=== PATIENT | male | born 1970 | race Two or more races ===

== ENCOUNTER 2024-11-12 13:26 | Emergency (ER) | payer SELFPAY ==
[2024-11-12 13:27] VITALS: BMI 23.7
[2024-11-12 13:48] VITALS: BP 130/89; PULSE 115; RESP 18; TEMP 36.6; O2SAT 95
--- NOTE | 2024-11-12 13:51 | EDRME_ITS ---
Rapid Medical Screening Exam [facility] Arrival date/time: 11/12/24 13:26 53-year-old male with no known medical history presents to the emergency room with a chief complaint of lumbar back pain x 3 days. Patient is having numbness to his groin area, patient is unable to stand up and take steps. I have greeted and performed a focused initial assessment of this patient. A comprehensive ED assessment and evaluation of the patient, analysis of all test results, and completion of the medical decision making process will be conducted by additional ED providers. Chief Complaint: Back Pain/Injury Time Seen by Provider: 11/12/24 13:46 Vital signs: Vital Signs Temperature 97.8 F 11/12/24 13:48 Pulse Rate 115 H 11/12/24 13:48 Respiratory Rate 18 11/12/24 13:48 Blood Pressure 130/89 H 11/12/24 13:48 Pulse Oximetry (%) 95 11/12/24 13:48 Oxygen Delivery Method Room Air 11/12/24 13:48 Vital signs reviewed by provider: Yes
[2024-11-12] MEDS: KETOROLAC INJ 60 MG/2 ML VIAL 30 MG IM (14:05)
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
[2024-11-12 14:35] LABS: Basophils % (Auto) 1 % (0-2.5); Eosinophils # (Auto) 0.1 Thou/mm3 (0.0-0.5); Eosinophils % (Auto) 1 % (0-10); Hematocrit 46.2 % (41.0-53.0); Hemoglobin 16.1 g/dL (13.5-16.0); Immature Granulocytes % (Auto) 0 % (0-0); Immature Granulocytes Auto 0.02 Thou/mm3 (0.00-0.00); Lymphocytes # (Auto) 1.3 Thou/mm3 (1.0-4.8); Lymphocytes % (Auto) 18 % (10-50); Mean Corpuscular HGB Conc 34.8 g/dl (31.0-37.0); Mean Corpuscular Hemoglobin 30.7 pg (25.0-35.0); Mean Corpuscular Volume 88 fL (80-100); Monocytes # (Auto) 0.7 Thou/mm3 (0.0-0.8); Monocytes % (Auto) 9 % (0-12); Neutrophils # (Auto) 5.1 Thou/mm3 (1.8-7.7); Neutrophils % (Auto) 70 % (37-80); Nucleated Red Blood Cell % 0 /100 WBC (0); Platelet Count 327 Thou/mm3 (140-440); RDW Standard Deviation 42.7 fL (35.1-43.9); Red Blood Count 5.24 Miln/mm3 (4.50-5.90); White Blood Count 7.2 Thou/mm3 (3.8-10.6)
[2024-11-12 14:51] LABS: Alanine Aminotransferase 16 U/L (10-49); Albumin, Serum 4.7 gm/dL (3.5-5.0); Albumin/Globulin Ratio 1.5 (1.2-2.2); Alkaline Phosphatase 127 U/L (46-116); Anion Gap 10 (7-16); Aspartate Amino Transferase 15 U/L (0-34); BUN/Creatinine Ratio 21 Ratio (12-20); Bilirubin,Total 1.2 mg/dL (0.3-1.2); Blood Urea Nitrogen 21 mg/dL (9-23); Calcium 9.2 mg/dL (8.3-10.6); Calcium (Corrected) 9.2 mg/dL (8.5-10.1); Carbon Dioxide 24.3 mMol/L (20.0-31.0); Chloride 104 mMol/L (98-107); Creatine Kinase 129 U/L (34-171); Estimated Creatinine Clearance 89.9 mL/min (>60); Globulin 3.1 gm/dL (2.3-3.5); Glucose 174 mg/dL (74-106); Osmolality,Calculated 282 (275-295); Potassium 3.5 mMol/L (3.4-5.1); Sodium 138 mMol/L (136-145); Total Protein 7.8 gm/dL (5.7-8.2); eGFR > 60 See Note
--- NOTE | 2024-11-12 15:30 | XR_ITS ---
Examination: CT lumbar spine, with intravenous contrast 2-D sagittal reconstructions. 2-D coronal reconstructions. 3-D reconstructions. Date and time of exam:November 12, 2024 1617 hours INDICATIONS: Low back pain with difficulty walking today CTDI: vol (mGy):21.4 DLP: (mGycm):705 Technique: Multiple 1.25 mm axial sections of the lumbar spine with intravenous 60 cc Isovue 370 have been obtained. 2-D sagittal and coronal reconstructions have been obtained. 3-D reconstructions have been obtained. Low dose protocols were performed. One or more of the following dose reduction techniques were used; automated exposure control, adjustment of the mA and/or KV according to patient size, use of iterative reconstruction technique. Findings: Mild osteopenia Normal lumbar fracture Schmorl's node superior endplate L4 No spondylolisthesis Oldf-rj-uqqkojuw disc narrowing upper 4 lumbar levels Lumbar pedicles, laminae, transverse and posterior spinous processes intact. L5-S1 4 mm central lumbar disc bulge contiguous with the right S1 nerve root, axial image 113 with mild bilateral L5 ganglionic compression L4-L5 4 mm central lumbar disc bulge extending to the right foraminal region with moderate right L4 ganglionic compression L3-L4 no disc protrusion L2-L3 no disc protrusion 1 internal disc protrusion IMPRESSION: No lumbar fracture L5-S1 4 mm on the lumbar disc bulge contiguous with the right S1 nerve root, extending to the intervertebral foramina bilaterally with mild bilateral L5 ganglionic compression L4-L5 4 mm central lumbar disc bulges extending to the right foraminal region with moderate right L4 ganglionic compression
[2024-11-12 16:04] VITALS: BP 98/67; PULSE 97; RESP 18; TEMP 36.6; O2SAT 95
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
[2024-11-12 18:07] VITALS: BP 112/85; PULSE 73; RESP 16; TEMP 36.7; O2SAT 91
--- NOTE | 2024-11-12 19:44 | PC.NURSE ---
1944 RECEIVED CALL FROM [facility] AT THIS TIME. ROSEMARY CHECK GRADER SPEAKING WITH GABI AT THIS TIME.
--- NOTE | 2024-11-12 20:17 | PC.NURSE ---
2014, ACCEPTED TO [facility], BY FOR NEUROSURGERY, ER TO ER, REPORT TO [id number], SPOKE TO BAN
[2024-11-12 21:15] VITALS: BP 120/79; PULSE 70; RESP 16; TEMP 37; O2SAT 93
[2024-11-12 21:15] LABS: Collection Type, Urine Clean Catch
[2024-11-12 22:02] LABS: Bacteria,Urine 1+; Bilirubin,Urine 1+ (Negative); Blood,Urine Negative (Negative); Clarity,Urine Turbid (Clear/Hazy); Color,Urine Yellow (Lt Yel-Yel); Glucose, Urine Negative (Negative); Ketones,Urine 2+ (Negative); Leukocyte Esterase,Urine Negative (Negative); Nitrite,Urine Negative (Negative); Protein,Urine 1+ (Neg - Trace); RBC,Urine 4 /hpf (0-3); Specific Gravity,Urine 1.047 (1.001-1.035); Squamous Epithelial Cell,Urine < 1 /hpf (0-5); WBC,Urine 16 /hpf (0-5)
[2024-11-12 22:03] LABS: Culture Indicated,Urine Yes
== END 2024-11-12 22:41 | disposition short-term general hospital (02) ==
PROVIDERS: Nurse Practitioner Family; Emergency Provider Emergency Medicine
DX: M51.26 Other intervertebral disc displacement, lumbar region (principal); R53.1 Weakness; G82.20 Paraplegia, unspecified
CPT/HCPCS: 51702; 36415; 70150; 72132; 80053; 81001; 82550; 85025; 87086; 96372; 99285; A4649; J1885; Q9967